=== PATIENT | female | born 1950 | race Caucasian/White ===

== ENCOUNTER 2016-06-13 06:24 | Day surgery (SDC) | payer OTHER ==
[2016-06-10 15:55] VITALS: BMI 44.4
--- NOTE | 2016-06-12 05:13 | PREOPHP ---
DATE OF ADMISSION: 06/13/2016 REASON FOR ADMISSION: D and C hysteroscopy. HISTORY OF PRESENT ILLNESS: This is a 65-year-old female, 2, para 2 patient with a last men strual period 20 years ago who had endometrial hyperplasia last year, went to [facility], and had a negative endometrial biopsy. She needed a followup, and she has been having pelvic pain off and on. She had no problems in urination, and she is having some intertrigo. PAST MEDICAL HISTORY: She has a history of thyroid excision in 2006 and IBS. MEDICATIONS: She is on levothyroxine 125. ALLERGIES: SHE IS NOT ALLERGIC TO ANY MEDICATION. FAMILY HISTORY: Unremarkable. REVIEW OF SYSTEMS: Noncontributory. PHYSICAL EXAMINATION: VITAL SIGNS: Stable. She is 5 feet 3 inches, weighs 240 pounds. Blood pressure 150/80, pulse is 8 0. HEAD AND NECK: Normal. BREASTS: Soft, nontender, no masses. CHEST: Clear. HEART: Normal sinus rhythm. LUNGS: Clear. ABDOMEN: Soft, nontender, no masses. GENITALIA: With normal external genitalia. Uterus retroverted, flexed uterus, normal adnexa are ne gative. RECTAL: Negative. DIAGNOSES: An ultrasound had revealed that she had endometrial hyperplasia. For this reason and in view that she had endometrial biopsy last year, negative, we will be doing a fractional D and C and hysteroscopy. She has been advised of the possible risks and possible complications of the procedu re with her alternatives and options. Written information was provided. She had no more questions and agreed to go ahead with the procedure with full understanding and no more questions. DIAGNOSES: 1. Endometrial hyperplasia. 2. Obesity. PLAN: She is undergoing the procedure already mentioned. Dictated By: BLANK CRENSHAW MD [facility] Conf#: [id number] DID#: [id number]
[~2016-06-13] VITALS: Ht 157.5 cm; Wt 104.0 kg
[2016-06-13] VITALS (8 sets, daily range): BP systolic 139–164; BP diastolic 56–77; PULSE 70–78; RESP 16–19; Ht 157.5 cm; Wt 104.0 kg
[~2016-06-13 06:24] MED LIST: LEVOTHYROXINE; PROAIR
[2016-06-13] MEDS ORDERED: CEFAZOLIN 2 GM/50 ML (PMX) 50 ML IVPB ONE (06:30)
[2016-06-13] MEDS ORDERED: PROPOFOL 200 MG INJ ONE (07:00)
[2016-06-13] MEDS ORDERED: MIDAZOLAM 1 MG/ML 2 ML INJ ONE (08:42)
[2016-06-13] MEDS ORDERED: PROPOFOL 20 ML ONE (08:42)
[2016-06-13] MEDS ORDERED: FENTAnyl 50 MCG/ML VIAL ONE (08:42)
--- NOTE | 2016-06-13 08:51 | HPN ---
Date/Time of Note Date/Time of Note DATE: 06/13/16 TIME: 08:51 Interval H&P Admission Note Pt. seen H&P reviewed: No system changes BLANK CRENSHAW MD Jun 13, 2016 08:51
[2016-06-13] MEDS ORDERED: ONDANSETRON 4 MG INJ IV PRN (09:00)
[2016-06-13] MEDS ORDERED: morphine (1 MG/ML) 10ML SYRINGE IV PRN ×3 (09:00)
[2016-06-13] MEDS ORDERED: MEPERIDINE 25 MG INJ IV PRN (09:00)
[2016-06-13] MEDS ORDERED: EPHEDrine SULFATE 50 MG/5 ML SYG IV PRN (09:00)
[2016-06-13] MEDS ORDERED: DIPHENHYDRAMINE 50 MG INJ IV PRN (09:00)
[2016-06-13] MEDS ORDERED: FENTAnyl 50 MCG/ML VIAL IV PRN ×2 (09:00)
[2016-06-13] MEDS ORDERED: HYDROmorphONE (0.2 MG/ML) 10ML SYG IV PRN ×3 (09:00)
[2016-06-13] MEDS ORDERED: KETOROLAC 30 MG INJ ONE (09:23)
[2016-06-13] MEDS ORDERED: METOCLOPRAMIDE 10 MG INJ ONE (09:23)
[2016-06-13] MEDS ORDERED: DEXAMETHASONE 4 MG/ML 1 ML INJ ONE (09:23)
[2016-06-13] MEDS ORDERED: ONDANSETRON 4 MG INJ ONE (09:23)
[2016-06-13] MEDS ORDERED: CEFAZOLIN 1 GM INJ ONE (09:23)
[2016-06-13] MEDS ORDERED: PHENYLephrine (100 MCG/ML) 5ML SYG ONE (09:36)
--- NOTE | 2016-06-13 09:48 | PD.PPDC ---
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
--- NOTE | 2016-06-13 09:53 | OPPN ---
Date/Time of Note Date/Time of Note DATE: 06/13/16 TIME: 09:49 Operative/Procedure Note Pre-Operative Diagnosis endometrial hyperplasia obesity Post-Operative Diagnosis same old fibroid bilateral hydrosalpinx Procedure FRACTIONAL D&C HYSTEROSCOPY Surgeon: BLANK CRENSHAW MD Anesthesiologist: ROBER ANDERSON MD Findings HYDROSALPINX ENDOMETRIAL POLYP OLD FIBROID Estimated blood loss: none Specimens ENDOMETRIAL SAMPLING Complications: None Anesthesia type: general BLANK CRENSHAW MD Jun 13, 2016 09:52
[2016-06-13] MEDS ORDERED: KETOROLAC 30 MG INJ IV PRN (10:00)
--- NOTE | 2016-06-13 10:43 | OPR ---
DATE OF OPERATION: 06/13/2016 PREOPERATIVE DIAGNOSES: 1. Endometrial hyperplasia. 2. Morbid obesity. POSTOPERATIVE DIAGNOSES: 1. Endometrial hyperplasia. 2. Morbid obesity. 3. All fibroid uterus. 4. Endometrial polyps. OPERATION PERFORMED: Fractional dilatation and curettage, hysteroscopy. ANESTHESIA: General. ANESTHESIOLOGIST: Enmanuel Ramirez MD SURGEON: Blank Gamboa MD COMPLICATIONS: None. DESCRIPTION OF PROCEDURE: The patient was given general anesthesia, placed in the lithotomy positio n. The perineal and vaginal area were prepped and draped and confirmatory examination under anesthe jennifer revealed that there was marked vaginal atrophy. The palpation of the uterus revealed that there is possible all fibroid. Uterus is retroverted and normal size. Adnexa are nonpalpable. The vagin al speculum was applied. The cervix was held. Endocervical curettage was done. The uterus was ope darren with the stenosis of the cervix with Hegar dilators up to a number 7. The hysteroscope was plac ed in and the visualization of the endometrial lining revealed that there was a small polyp. Both t ubes appeared with a large opening as possible hydrosalpinx bilaterally. There were no fibroids or large polyps inside the cavity. The scope was removed and the curettage was done of the anterior wa ll, posterior wall, lateral wall and fundus. The cavity was sampled and the procedure was finished by removing all the instruments. The patient tolerated the procedure well and left the OR awake and stable. Sponge counts, instrument counts, needle counts were correct and intravenous antibiotics w ere given for prophylaxis. Dictated By: BLANK JACQUES/MORE Conf#: [id number] DID#: [id number]
--- NOTE | 2016-06-15 19:10 | RADRPT ---
Vent Rate: 70 bpm RR Interval: 0 msec WA Interval: 148 msec QRS Duration: 92 msec QT Interval: 422 msec QTC Interval: 455 msec P-R-T [place]: 53 - 26 - 45 degrees Normal sinus rhythm Normal ECG Electronically Signed By: Tyrone Neal [id number]
== END 2016-06-13 11:25 | disposition home or self-care (01) ==
LOC: SDS 06:24
PROVIDERS: ATTEND Obstetrics & Gynecology
DX: D25.9 Leiomyoma of uterus, unspecified (principal); N84.0 Polyp of corpus uteri; E66.01 Morbid (severe) obesity due to excess calories; Z68.41 Body mass index [BMI] 40.0-44.9, adult; E03.9 Hypothyroidism, unspecified; J45.909 Unspecified asthma, uncomplicated
CPT/HCPCS: 58558; 88305; 93005; J0690; J1100; J1885; J2250; J2370; J2405; J2765; J3010; Z7512; Z7610

== ENCOUNTER 2017-05-17 05:56 | Emergency (ER) | END 2017-05-17 08:19 | disposition home or self-care (01) ==